=== PATIENT | male | born 1950 | race Caucasian/White ===

== ENCOUNTER 2022-03-01 10:28 | Emergency (ER) | payer OTHER ==
[2022-03-01 11:30] LABS: HEMOGLOBIN 15.2 gm/dl (14.0-17.5); RED BLOOD COUNT 5.23 M/UL (4.20-5.50); WHITE BLOOD COUNT 12.3 K/UL (4.5-11.0)
[2022-03-01 12:01] LABS: BUN/CREATININE RATIO 13 (0-10)
[2022-03-01] MEDS ORDERED: ZITHROMAX250 MG PO (12:30)
[2022-03-01] MEDS ORDERED: OMNICEF 300 MG300 MG PO (12:30)
[2022-03-01] MEDS ORDERED: PREDNISONE20 MG PO (12:41)
== END 2022-03-01 13:08 | disposition home or self-care (01) ==
LOC: ER1 10:28
PROVIDERS: Family Medicine
DX: J18.9 Pneumonia, unspecified organism (principal); Z20.822 Contact with and (suspected) exposure to COVID-19
CPT/HCPCS: 80053; 82550; 82553; 83605; 83880; 84484; 85025; 87040; 93005; 94640; 94664; 94760; 96374; 96375; 99284; J0696; J2930; U0002